=== PATIENT | male | born 1945 | race Caucasian/White ===

== ENCOUNTER 2021-04-10 12:13 | Outpatient (REF) | payer MEDICARE, OTHER, SELFPAY ==
[2021-04-10 11:58] VITALS: BMI 27.3
[2021-04-10 12:00] VITALS: BP 137/64; PULSE 64; RESP 16; TEMP 36.3; O2SAT 97
== END 2021-04-10 12:14 | disposition home or self-care (01) ==
LOC: HO.MS 12:13
PROVIDERS: PCP Internal Medicine; Visit Provider Ophthalmology
PROC: (CPT 66821; principal; 2021-04-10 14:40)
DX: H26.491 Other secondary cataract, right eye (principal); I10 Essential (primary) hypertension; E11.3593 Type 2 diabetes mellitus with proliferative diabetic retinopathy without macular edema, bilateral; Z96.1 Presence of intraocular lens; Z79.4 Long term (current) use of insulin; Z79.899 Other long term (current) drug therapy; Z87.891 Personal history of nicotine dependence
CPT/HCPCS: 66821

== ENCOUNTER 2022-02-02 07:59 | Outpatient (RCR) | payer MEDICARE, OTHER, SELFPAY | END 2022-02-07 16:52 | disposition home or self-care (01) | LOC: HO.WCC 07:59 | PROVIDERS: PCP Internal Medicine; Visit Provider Physician Assistant | DX: Z09 Encounter for follow-up examination after completed treatment for conditions other than malignant neoplasm (principal); I87.2 Venous insufficiency (chronic) (peripheral); I25.10 Atherosclerotic heart disease of native coronary artery without angina pectoris; Z95.1 Presence of aortocoronary bypass graft; Z95.0 Presence of cardiac pacemaker; Z87.891 Personal history of nicotine dependence | CPT/HCPCS: 99212 ==

== ENCOUNTER 2023-01-28 14:55 | Emergency (ER) | payer MEDICARE, OTHER, SELFPAY ==
--- NOTE | 2023-01-28 15:22 | ED.GENADULT ---
HPI - General Adult General Stated complaint: CARDIAC ARREST Time Seen by Provider: 01/28/23 15:13 Source: EMS Mode of arrival: EMS Limitations: altered mental status History of Present Illness HPI narrative: 77-year-old male with history of dialysis, diabetes presents in cardio respiratory arrest. Patient was last heard from by friends approximately 1:00 p.m.. They subsequently found him unresponsive. 911 was contacted around 214. EMS arrived shortly thereafter. Blood sugar was slightly hyperglycemic. CPR was initiated due to agonal respirations. They intubated him in the field. He was placed on the Pablo device. Prior to arrival he had epinephrine x5, calcium given his history of dialysis. Upon arrival, patient was on backboard with a Pablo device. He was unresponsive. He was intubated. Related Data Allergies Allergy/AdvReac Type Severity Reaction Status Date / Time No Known Allergies Allergy Unverified 07/14/20 15:50 [No Known Allergies*] PMFSH Past Medical History Medical History Diabetes mellitus, type 2 History of renal dialysis Surgical History H/O coronary artery bypass surgery Physical Exam ED GEN: Intubated, Pablo device, unresponsive HEENT: Normocephalic, atraumatic Respiratory: Intubated no spontaneous respirations Cardiovascular: CPR Abdomen: Soft, nontender, nondistended Extremities: No edema Neurologic: No spontaneous neurologic activity Skin: Scattered ecchymoses : Rectal bleeding Course Course Course Narrative: 77-year-old male with multiple medical problems including dialysis presents cardiac arrest. Patient was intubated upon arrival. He had no spontaneous pulses respirations. Patient was maintained on a Pablo device. A total of 8 amps of epinephrine, 1 amp of sodium bicarbonate, 2 amps of calcium gluconate. He has a pacemaker. This did cause cardiac contractility. However, patient had a down time of over 60 minutes. Was determined due to no spontaneous cardiac activity, continued pulses electrical activity, 1 hour of down time, patient was unlikely to have a meaningful recovery. His determine to cease CPR at that time. I will discuss care with the patient's son. Procedures Procedure Narrative Procedure Narrative: CPR: Cardiac arrest respiratory arrest, CPR for 18 minutes. CPR included chest compressions, respiratory support, administration of medications including epinephrine, sodium bicarb and calcium Medical Decision Making Medical Decision Making MDM Narrative: Patient presents in cardiac arrest. CPR initiated in the field was continued in the hospital. After total of over 1 hour of down time, CPR was discontinued and time was pronounced at 15 10 this afternoon. I will review the case with the patient's son. Differential Diagnosis Differential Diagnoses: The differential diagnosis associated with the presentation includes (Cardiac arrest, respiratory arrest, diabetes, dialysis) Chronic Conditions Patient?s care impacted by: Diabetes Discharge Plan Discharge Clinical Impression: Cardiac arrest, Respiratory arrest, Diabetes, ESRD (end stage renal disease) Patient Disposition:
[2023-01-28 15:40] LABS: Glucose, Whole Blood 359 mg/dL (60-115)
--- NOTE | 2023-01-28 16:02 | PC.NURSE ---
[facility] called with referral number [id number]. waiting for pt's son to transport pt's to bedside.
--- NOTE | 2023-01-28 16:29 | PC.NURSE ---
Family at bedside at this time
--- NOTE | 2023-01-28 16:53 | MHC.EDTECH ---
HOME: [facility] [place] IN [place], [facility]
== END 2023-01-28 18:40 | disposition expired ==
PROVIDERS: Emergency Provider Emergency Medicine; PCP Internal Medicine
DX: I46.9 Cardiac arrest, cause unspecified (principal); Z79.899 Other long term (current) drug therapy
CPT/HCPCS: 82947; 96374; 96375; 99282; 99285; J0171